=== PATIENT | male | born 1940 | race Caucasian/White ===

== ENCOUNTER 2021-07-22 11:57 | Outpatient (CLI) | payer MEDICARE, SELFPAY ==
[2021-07-22 12:18] LABS: Hematocrit 38.7 % (42.0-52.0); Hemoglobin 11.8 g/dL (14.0-18.0); Mean Corpuscular HGB Conc 30.5 g/dl (32-36); Mean Corpuscular Hemoglobin 27.9 pg (26-34); Mean Corpuscular Volume 91.5 fl (80-100); Platelet Count Result 290 k/mm3 (150-375); Red Blood Count 4.23 M/mm3 (4.6-6.20); Red Cell Distribution Width 14.6 % (11.5-14.5); White Blood Count 8.5 K/mm3 (4.5-10.0)
[2021-07-22 13:50] LABS: Iron 36 ug/dL (49-181); Percent Iron Saturation 15 % (20-50)
== END 2021-07-22 11:58 | disposition home or self-care (01) ==
PROVIDERS: Visit Provider Internal Medicine Hematology & Oncology
DX: D50.9 Iron deficiency anemia, unspecified (principal)
CPT/HCPCS: 36415; 82607; 82728; 83540; 83550; 85027